=== PATIENT | female | born 1945 | race Caucasian/White ===

== ENCOUNTER 2018-10-05 11:44 | Emergency (ER) | payer OTHER ==
[~2018-10-05] VITALS: Ht 157.5 cm; Wt 83.9 kg
[2018-10-05 11:49] VITALS: Ht 157.5 cm; Wt 83.9 kg
[2018-10-05 15:59] VITALS: BP 110/75
== END 2018-10-05 15:59 | disposition home or self-care (01) ==
LOC: ED 11:44
DX: S30.0XXA Contusion of lower back and pelvis, initial encounter (principal); S99.921A Unspecified injury of right foot, initial encounter; S16.1XXA Strain of muscle, fascia and tendon at neck level, initial encounter; S09.8XXA Other specified injuries of head, initial encounter; E11.9 Type 2 diabetes mellitus without complications; E78.00 Pure hypercholesterolemia, unspecified; Z86.73 Personal history of transient ischemic attack (TIA), and cerebral infarction without residual deficits; Z79.01 Long term (current) use of anticoagulants; W01.0XXA Fall on same level from slipping, tripping and stumbling without subsequent striking against object, initial encounter; Y93.89 Activity, other specified; Y92.89 Other specified places as the place of occurrence of the external cause; Y99.8 Other external cause status; I10 Essential (primary) hypertension

== ENCOUNTER 2018-10-23 14:13 | Emergency (ER) | payer OTHER ==
[~2018-10-23] VITALS: Ht 157.5 cm; Wt 84.4 kg
[2018-10-23 14:43] VITALS: Ht 157.5 cm; Wt 84.4 kg
[2018-10-23 16:25] LABS: PLATELET COUNT 235 x10^3mcL (130-400)
[2018-10-23 16:42] LABS: CALCIUM 9.7 mg/dL (8.5-10.1); CARBON DIOXIDE 23.1 mmol/L (21-32); CHLORIDE SERUM 101 mmol/L (98-107); GLUCOSE SERUM 162 mg/dL (74-106); POTASSIUM SERUM 3.7 mmol/L (3.5-5.1); SODIUM SERUM 139 mmol/L (136-145)
[2018-10-23 16:50] LABS: BAND NEUTROPHIL 3 % (0-10); MONOCYTE 3 % (0-7); SEGMENTED NEUTROPHILS 90 % (37-75)
[2018-10-23 16:54] LABS: rbc morphology (normal/abnorm) ABNORMAL (NORMAL)
[2018-10-23 16:55] LABS: PLATELET MORPHOLOGY FEW LARGE PLATELETS
[2018-10-23 16:59] LABS: ALBUMIN 3.9 g/dL (3.4-5.0); ALKALINE PHOSPHATASE 151 U/L (46-116); ALT/SGPT 19 U/L (14-59); AST/SGOT 23 U/L (15-37); BILIRUBIN TOTAL 0.9 mg/dL (0.20-1.00); LIPASE 47 IU/L (73-393)
[2018-10-23 17:48] LABS: UA SPECIFIC GRAVITY 1.015 (1.005-1.035); microscopic required? YES; urine erythrocyte 3+ (NEGATIVE)
[2018-10-23 23:38] VITALS: BP 137/78
== END 2018-10-23 23:39 | disposition home or self-care (01) ==
LOC: ED 14:13
PROVIDERS: Emergency Medicine
DX: N39.0 Urinary tract infection, site not specified (principal); K52.9 Noninfective gastroenteritis and colitis, unspecified; K62.5 Hemorrhage of anus and rectum; A41.9 Sepsis, unspecified organism
CPT/HCPCS: J1956; J2270; J2405; J3490; J7030; J7040; Q0092